=== PATIENT | female | born 2000 | race Caucasian/White ===

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

== ENCOUNTER 2022-10-30 00:10 | Emergency (ER) | payer OTHER ==
[~2022-10-30] VITALS: Ht 167.6 cm; Wt 72.6 kg
[~2022-10-30 00:10] MED LIST: ACET-10509 PO; IBUP-2213 PO
[2022-10-30 00:30] VITALS: BP 139/90
--- NOTE | 2022-10-30 00:30 | NUR ---
to bed ambulatory
--- NOTE | 2022-10-30 00:58 | NUR ---
ALERT AND ORIENTED X 4. COMPLAINING ABD PAIN 05/24. ROOM AMBULATORY
--- NOTE | 2022-10-30 01:23 | NUR ---
Patient being evaluated by physician at bedside.
[2022-10-30 01:40] LABS: APPEARANCE,URINE CLOUDY (CLEAR); BILIRUBIN,URINE NEGATIVE (NEGATIVE); BLOOD, URINE 2+ (NEGATIVE); COLOR,URINE YELLOW (YELLOW); LEUKOCYTE ESTERASE ,URINE 3+ (NEGATIVE); NITRITE, URINE POSITIVE (NEGATIVE); UGLUCOSE NEGATIVE (NEGATIVE)
[2022-10-30 01:51] LABS: WBC,URINE TOO MANY TO COUNT /HPF (0-5)
[2022-10-30 02:35] LABS: BASOPHILS # (AUTO) 0.1 K/uL (0.00-0.22); BASOPHILS % (AUTO) 0.6 % (0.0-2.0); EOSINOPHILS # (AUTO) 0.2 K/uL (0-0.4); EOSINOPHILS % (AUTO) 1.6 % (0.0-4.0); HEMATOCRIT 37.8 % (36-48); HEMOGLOBIN 12.6 g/dL (12.0-16.0); LYMPHOCYTES # (AUTO) 4.3 K/uL (2.5-16.5); LYMPHOCYTES % (AUTO) 27.7 % (20.5-51.1); MEAN CORPUSCULAR HEMOGLOBIN 26 pg (27-31); MEAN CORPUSCULAR HGB CONC 33 g/dL (33-37); MEAN CORPUSCULAR VOLUME 78.1 fL (80-94); MONOCYTES # (AUTO) 1.1 K/uL (0.8-1.0); MONOCYTES % (AUTO) 7.1 % (1.7-9.3); NEUTROPHILS # (AUTO) 9.7 K/uL (1.8-7.7); PLATELET COUNT (AUTO) 256 K/uL (140-450); RED BLOOD CELL COUNT(AUTO) 4.85 MIL/uL (4.20-5.40); RED CELL DISTRIBUTION WIDTH 16.3 % (11.6-13.7); WHITE BLOOD COUNT (AUTO) 15.4 K/uL (4.5-11.0)
[2022-10-30] MEDS ORDERED: NITR100C7 PO (03:22)
[2022-10-30 03:30] VITALS: BP 139/90
--- NOTE | 2022-10-30 04:03 | NUR ---
Patient discharged with v/s stable. Written and verbal after care instructions given and explained. Patient verbalized understanding. Ambulatory with steady gait. All questions addressed prior to discharge. Advised to follow up with PMD. pt left with her jhon
--- NOTE | 2022-11-01 16:01 | NUR ---
LATE ENTRY. RECEIVED POSITIVE URINE CULTURE RESULT. FORM GIVEN TO DR JOHNSON. TREATMENT APPROPRIATE. FORM PLACED IN BINDER.
== END 2022-10-30 03:30 | disposition home or self-care (01) ==
LOC: MED 00:10
DX: O20.0 Threatened abortion (principal); O23.41 Unspecified infection of urinary tract in pregnancy, first trimester; N39.0 Urinary tract infection, site not specified; Z3A.08 8 weeks gestation of pregnancy
CPT/HCPCS: 36415; 76817; 81001; 84702; 85025; 86900; 86901; 87086; 99284; Q0092

== ENCOUNTER 2022-11-13 20:07 | Emergency (ER) | payer OTHER ==
[~2022-11-13] VITALS: Ht 167.6 cm; Wt 74.4 kg
[~2022-11-13 20:07] MED LIST changes: +NITR100C7 PO
[2022-11-13 20:43] VITALS: BP 129/84
[2022-11-13] MEDS ORDERED: BENZ-300 PO (21:28)
[2022-11-13] MEDS ORDERED: ONDA-188 SL (21:28)
[2022-11-13 21:37] VITALS: BP 129/84
--- NOTE | 2022-11-13 21:37 | NUR ---
ATTEMPTED TO CALL PT FOR DC INSTRUCTIONS. DR. NEWBY GIVEN RESULTS AND PLAN FOR DC.
--- NOTE | 2022-11-13 21:39 | NUR ---
SPOKE WITH PT ON PHONE. PT STATES SHE IS IN HER CAR AND WILL COME IN TO RECEIVE DC INSTRUCTIONS.
--- NOTE | 2022-11-13 21:40 | NUR ---
Patient discharged with v/s stable. Written and verbal after care instructions given and explained. Patient alert, oriented and verbalized understanding of instructions. Ambulatory with steady gait. All questions addressed prior to discharge. ID band removed. Patient advised to follow up with PMD. Rx of ZOFRAN, CEPACOL LOZENGE given. Patient educated on indication of medication including possible reaction and side effects. Opportunity to ask questions provided and answered.
== END 2022-11-13 21:40 | disposition home or self-care (01) ==
LOC: MED 20:07
DX: O99.511 Diseases of the respiratory system complicating pregnancy, first trimester (principal); J06.9 Acute upper respiratory infection, unspecified; Z3A.01 Less than 8 weeks gestation of pregnancy
CPT/HCPCS: 99283